=== PATIENT | female | born 1980 | race African-American/Black ===

== ENCOUNTER 2020-04-06 21:52 | Emergency (ER) | payer OTHER ==
[~2020-04-06] VITALS: Ht 170.2 cm; Wt 74.8 kg
[2020-04-06] MEDS ORDERED: Cephalexin 500mg cap ORAL ONE (22:15)
[2020-04-06] MEDS ORDERED: CEPHALEXIN500 MG ORAL (22:16)
[2020-04-06 22:39] VITALS: BP 100/67
[2020-04-06 22:50] LABS: APPEARANCE,URINE SLIGHTLY CLOUDY; BILIRUBIN, URINE NEGATIVE (NEGATIVE); COLOR,URINE YELLOW; GLUCOSE, URINE (UA) NEGATIVE (NEGATIVE); KETONES,URINE NEGATIVE (NEGATIVE); LEUKOCYTE ESTERASE ,URINE 3+ (NEGATIVE); NITRITE,URINE NEGATIVE (NEGATIVE); PH,URINE 6.5 (4.5-8.0); PROTEIN,URINE 2+ (NEGATIVE); UROBILINOGEN,URINE NORMAL MG/DL (0.0-1.0)
--- NOTE | 2020-04-06 22:54 | Emergency Room Report ---
History of Present Illness General Chief Complaint: Female Urogenital Problems Source: Patient Present Illness HPI 39-year-old otherwise healthy male here with dysuria and urinary frequency for 3 days. Patient says that she has been urinating frequently and having burning with urination. Has had a urinary tract infection before and says that this feels similar. Is complaining of midline suprapubic discomfort as well. No fevers, chills, chest pain, palpitation, shortness of breath, back pain, nausea, vomiting, diarrhea, dysuria, vaginal discharge, vaginal bleeding. She is sexually active with men only but says "I know I do not have an STD." Allergies: Coded Allergies: No Known Allergies (Unverified , 04/06/20) COVID-19 Screening Contact w/high risk pt: No Experienced COVID-19 symptoms?: No COVID-19 Testing performed [employer]: No Patient History Last Menstrual Period: 03/16/20 Now: No Nursing Documentation-[facility] Past Medical History: No Stated History Review of Systems All Other Systems: negative except mentioned in HPI Physical Exam Vital Signs Date Time Temp Pulse Resp B/P (MAP) Pulse Ox O2 Delivery O2 Flow Rate FiO2 04/06/20 22:00 98.1 82 20 100/67 (78) 90 Room Air Sp02 EP Interpretation: reviewed, normal General Appearance: no apparent distress, alert, non-toxic Head: normocephalic, atraumatic Eyes: bilateral eye normal inspection, bilateral eye PERRL ENT: hearing grossly normal, normal pharynx, no angioedema, normal voice Neck: full range of motion, supple/symm/no masses Respiratory: chest non-tender, lungs clear, normal breath sounds, speaking full sentences Cardiovascular #1: regular rate, rhythm, no edema Cardiovascular #2: 2+ carotid (R), 2+ carotid (L), 2+ radial (R), 2+ radial (L), 2+ dorsalis pedis (R), 2+ dorsalis pedis (L) Gastrointestinal: normal bowel sounds, non tender, soft, non-distended, no guarding, no rebound Rectal: deferred Genitourinary: normal inspection, no CVA tenderness, other - Very mild suprapubic tenderness on palpation Musculoskeletal: back normal, normal range of motion, gait/station normal, non- tender Neurologic: alert, motor strength/tone normal, oriented x3, sensory intact, responsive, speech normal Psychiatric: judgement/insight normal, memory normal, mood/affect normal, no suicidal/homicidal ideation Lymphatic: no adenopathy Medical Decision Making Diagnostic Impression: Primary Impression: Dysuria Additional Impression: UTI (urinary tract infection) ER Course Laboratory Tests Test 04/06/20 22:35 Urine Color Yellow Urine Appearance Slightly cloudy Urine pH 6.5 (4.5-8.0) Urine Specific [place] 1.015 (1.005-1.035) Urine Protein 2+ (NEGATIVE) H Urine Glucose (UA) Negative (NEGATIVE) Urine Ketones Negative (NEGATIVE) Urine Blood Negative (NEGATIVE) Urine Nitrite Negative (NEGATIVE) Urine Bilirubin Negative (NEGATIVE) Urine Urobilinogen Normal MG/DL (0.0-1.0) Urine Leukocyte Esterase 3+ (NEGATIVE) H Urine RBC Pending Urine WBC Pending Urine Squamous Epithelial Cells Pending Urine Bacteria Pending Urine HCG, Qualitative Pending 39-year-old otherwise healthy female here with dysuria. Patient's urinalysis showed evidence of urinary tract infection. She had normal vital signs in the emergency department. No indication for lab work aside from urinalysis at this time. Urine test negative. Patient was to the emergency department and a prescription for Keflex. Told to come back to the emergency department worsening symptoms. Discharged in stable condition. Last Vital Signs Date Time Temp Pulse Resp B/P (MAP) Pulse Ox O2 Delivery O2 Flow Rate FiO2 04/06/20 22:39 98.1 20 100/67 97 Room Air 04/06/20 22:00 82 Disposition: HOME, SELF-CARE Condition: Stable Scripts Cephalexin* (KEFLEX*) 500 Mg Capsule 500 MG ORAL EVERY 12 HOURS, #14 CAP 0 Refills Prov: Idris Yost M.D. 04/06/20 [facility] Patient Instructions: Urinary Tract Infection Idris Yost M.D. Apr 06, 2020 22:54
[2020-04-06 23:15] VITALS: BP 112/71
== END 2020-04-06 23:15 | disposition home or self-care (01) ==
LOC: EMR 22:17
DX: N39.0 Urinary tract infection, site not specified (principal); R30.0 Dysuria
CPT/HCPCS: 81003; 81025; 87086; Z7502; 99283